=== PATIENT | male | born 1985 | race Caucasian/White ===

== ENCOUNTER 2019-04-11 17:32 | Emergency (ER) | payer SELFPAY ==
[~2019-04-11] VITALS: Ht 177.8 cm; Wt 95.5 kg
[~2019-04-11 17:32] MED LIST: DOXY100C PO; METF-960 PO; SITA25 PO
[2019-04-11 19:07] VITALS: BP 131/96
== END 2019-04-11 19:20 | disposition home or self-care (01) ==
LOC: EMS 17:32
DX: S09.90XA Unspecified injury of head, initial encounter (principal); M79.645 Pain in left finger(s); Z79.899 Other long term (current) drug therapy; W01.198A Fall on same level from slipping, tripping and stumbling with subsequent striking against other object, initial encounter; Y93.89 Activity, other specified; Y92.89 Other specified places as the place of occurrence of the external cause; Y99.8 Other external cause status
CPT/HCPCS: 70450

== ENCOUNTER 2025-07-01 18:39 | Emergency (ER) | payer MEDICAID ==
[~2025-07-01] VITALS: Ht 165.1 cm; Wt 98.2 kg
[~2025-07-01 18:39] MED LIST changes: -DOXY100C PO; +METF-1211 PO; -METF-960 PO
[2025-07-01 19:12] VITALS: TEMP 98.1
[2025-07-01] MEDS ORDERED: METH-659 PO (20:52)
[2025-07-01] MEDS ORDERED: IBUP-1492 PO (20:52)
[2025-07-01] MEDS: KETOROLAC TROMETHAMINE 30 MG/ML VIAL IM ONE (21:06)
[2025-07-01] MEDS: LIDOCAINE 5% TRANSDERMAL PATCH TD ONE (21:07)
[2025-07-01 21:12] VITALS: BP 156/97; PULSE 94; RESP 16; O2SAT 99
== END 2025-07-01 21:17 | disposition home or self-care (01) ==
LOC: EMS 18:39
DX: S13.4XXA Sprain of ligaments of cervical spine, initial encounter (principal); E11.9 Type 2 diabetes mellitus without complications; Z79.899 Other long term (current) drug therapy; V43.62XA Car passenger injured in collision with other type car in traffic accident, initial encounter; Y93.89 Activity, other specified; Y92.410 Unspecified street and highway as the place of occurrence of the external cause; Y99.8 Other external cause status
CPT/HCPCS: 99283; 96372; J1885